=== PATIENT | female | born 1990 | race Caucasian/White ===

== ENCOUNTER 2020-06-28 09:28 | Emergency (ER) | payer OTHER, SELFPAY ==
[2020-06-28 09:35] VITALS: BP 113/70; PULSE 86; RESP 20; TEMP 36.8; O2SAT 98
--- NOTE | 2020-06-28 09:50 | ED.UPPEXIN ---
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 She denies trauma or injury. Related Data Allergies Allergy/AdvReac Type Severity Reaction Status Date / Time No Known Allergies Allergy Verified 06/08/19 10:24 Review of Systems Review of Systems: All systems reviewed & are unremarkable except as noted in HPI and below Constitutional: Constitutional: Reports as per HPI Eyes: Eyes: Reports no additional eye complaints ENT: Reports system reviewed and no additional complaints, except as documented Cardiovascular: Cardiovascular: Reports no additional cardiovascular complaints Respiratory: Respiratory: Reports no additional respiratory complaints Gastrointestinal: Gastrointestinal: Reports no additional gastrointestinal complaints Genitourinary: Genitourinary: Reports no additional female genitourinary complaints Musculoskeletal: Musculoskeletal: Reports as per HPI Integumentary/Breasts: Skin/Breast: Reports system reviewed and no additional complaints, except as docu Neurologic: Reports system reviewed and no additional complaints, except as documented Psychiatric: Psychiatric: Reports no additional psychiatric complaints Endocrine: Endocrine: Reports no additional endocrine complaints Hematologic/Lymphatic: Hematologic/Lymphatic: Reports no additional hematologic/lymphatic complaints Allergic/Immunologic: Allergic/Immunologic: Reports no additional allergic/immunologic complaints PMFSH Social History Social History Smoking status: Former smoker Exam Const: General: healthy appearing, no acute distress and alert Nutritional Appearance: well nourished Orientation/consciousness: patient oriented x3 Limitations: no limitations HENMT: Head: normal to inspection Eyes: Pupils: Equal, round and reactive pupils present Neck: Neck: normal visual inspection and no lymphadenopathy Chest: Chest palpation & inspection: normal inspection of the chest Resp: Effort & Inspection: normal respiratory effort Cardio: Rate: regular rate Rhythm: regular rhythm GI: Inspection: non-distended GI Palp: Yes Soft to palpation, No Tenderness to palpation present (GI), No Guarding due to palpation present (GI) and No Rigid due to palpation : General: Yes no CVA tenderness Skin: General skin exam: normal color Neuro: General: patient oriented x3, moves all extremities, no meningeal signs and no focal motor deficits Cranial nerves: Yes Nystagmus not present Speech: normal speech Extrem: Other: Left posterior TTP over thoracic paraspinal muscles, No thoracic spine TTP, No scapula tenderness. Patient has no pain on anterior aspect or lateral aspect of left shoulder Psych: Mental Status: mental status grossly normal Course Course Emergency Course: Home w/ PO Pain meds. MDM - Extremity Injury (Upper) MDM Narrative Medical decision making narrative: No H/O Trauma or injury w/ FROM. No x-rays indicated Critical Care Time Critical Care Time Critical Care Time: No Discharge Plan Discharge Clinical Impression: Sprain of left shoulder Qualifiers: Encounter type: initial encounter Shoulder sprain type: other part of shoulder region Qualified Code(s): S43.492A - Other sprain of left shoulder joint, initial encounter Patient Disposition: Home, Self-Care Condition: Stable Instructions: Antibiotic Form Prescriptions: New cyclobenzaprine 5 mg tablet 5 mg PO TID PRN (Reason: muscle spasm) Qty: 30 RF: 0 naproxen 500 mg tablet 500 mg PO BID PRN (Reason: pain) Qty: 20 RF: 0 Follow-up/Referrals: Shasta Uribe MD [Primary Care Provider] - Time of Disposition: 09:57
== END 2020-06-28 10:01 | disposition home or self-care (01) ==
PROVIDERS: Emergency Provider Family Medicine; PCP Internal Medicine
DX: S43.492A Other sprain of left shoulder joint, initial encounter (principal)
CPT/HCPCS: 99283

== ENCOUNTER 2020-08-23 10:59 | Outpatient (CLI) | payer OTHER, SELFPAY ==
--- NOTE | ~2020-08-23 | US_ITS ---
EXAMINATION: US thyroid EXAM DATE: 08/23/2020 11:54 INDICATION: Thyroiditis. TECHNIQUE: Multiple grayscale and Doppler images of the thyroid were obtained (by a technologist who performed the scan) and subsequently reviewed. Individual nodules and recommendations may be reporte d in accordance with TI-RADS system as designated by the 2017 ACR White Paper TI-RADS committee. The re is no prior study for comparison. FINDINGS: There is diffusely heterogeneous thyroid echogenicity without definite superimposed focal nodule iden tified. Right thyroid lobe measures 5.0 x 2.1 x 1.8 cm, the left measuring 4.1 x 1.9 x 1.6 cm. IMPRESSION: Enlarged heterogeneous thyroid parenchyma. Reviewed, dictated and finalized at location B. 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
== END 2020-08-23 11:00 | disposition home or self-care (01) ==
LOC: CHSIMG 11:00
PROVIDERS: PCP Internal Medicine; Visit Provider Internal Medicine
DX: E06.9 Thyroiditis, unspecified (principal)
CPT/HCPCS: 76536

== ENCOUNTER 2020-12-30 15:27 | Outpatient (CLI) | payer OTHER, SELFPAY ==
[2020-12-30 17:00] LABS: Free T3 2.36 pg/mL (2.18-3.98); Free T4 Free Thyroxine 0.88 ng/dL (0.76-1.46); Thyroid Stimulating Hormone 9.92 uIU/mL (0.36-3.74)
== END 2020-12-30 15:28 | disposition home or self-care (01) ==
LOC: CHSLAB 15:29
PROVIDERS: PCP Internal Medicine; Visit Provider Internal Medicine
DX: E03.4 Atrophy of thyroid (acquired) (principal)
CPT/HCPCS: 36415; 84439; 84443; 84481

== ENCOUNTER 2021-05-02 11:42 | Outpatient (CLI) | payer OTHER, SELFPAY ==
[2021-05-02 13:06] LABS: SARS-CoV-2 RNA PCR Positive (Negative)
== END 2021-05-02 11:43 | disposition home or self-care (01) ==
LOC: CHSLAB 11:43
PROVIDERS: PCP Internal Medicine; Visit Provider Internal Medicine
DX: U07.1 COVID-19 (principal)
CPT/HCPCS: C9803; U0003; U0005

== ENCOUNTER 2021-08-13 02:06 | Emergency (ER) | payer OTHER, SELFPAY ==
--- NOTE | ~2021-08-13 | XR_ITS ---
EXAMINATION: XR nasal bones min 3V DATE: 08/13/2021 05:21 INDICATION: Nose injury. TECHNIQUE: 3 views of the nasal bones were obtained. COMPARISON: Head CT 03/08/2012 FINDINGS: Bone alignment is normal. No definite fracture. There is soft tissue gas in the nose. IMPRESSION: 1. No fracture. Reviewed, dictated and finalized at location A. 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 No fracture.
[2021-08-13 02:25] VITALS: BP 105/43; PULSE 92; RESP 20; TEMP 36.6; O2SAT 97
[2021-08-13] MEDS: SODIUM CHLORIDE 0.9% IV 500 ML 999 ML IV CONT (02:52)
[2021-08-13 02:56] LABS: Basophils Absolute Auto 0.03 K/mm3 (0.00-0.10); Basophils Percent Auto 0.2 % (0.0-1.0); Eosinophils Absolute Auto 0.02 K/mm3 (0.02-0.50); Eosinophils Percent Auto 0.1 % (1.0-6.0); Hematocrit 43.4 % (35.0-49.0); Hemoglobin 14.6 g/dL (12.0-15.0); Immature Granulocyte Absolute 0.07 K/mm3 (0.00-0.00); Immature Granulocyte Percent A 0.4 % (0.0-0.0); Lymphocytes Absolute Auto 0.63 K/mm3 (1.10-4.50); Mean Corpuscular HGB Conc 33.6 g/dL (32.0-36.0); Mean Corpuscular Hemoglobin 32.6 pg (27.0-31.0); Mean Corpuscular Volume 96.9 fL (78.0-102.0); Mean Platelet Volume 10.8 fl (9.2-11.8); Monocytes Absolute Auto 0.84 K/mm3 (0.10-0.90); Monocytes Percent Auto 5.4 % (2.0-11.0); Neutrophils Absolute Auto 14.1 K/mm3 (1.7-7.2); Neutrophils Percent Auto 89.9 % (50.0-70.0); Platelet Count Result 230 K/mm3 (150-420); Red Blood Count 4.48 M/mm3 (4.20-5.40); White Blood Count 15.7 K/mm3 (4.8-10.8)
[2021-08-13 03:11] LABS: Alanine Aminotransferase 20 U/L (14-59); Albumin Level 3.8 g/dL (3.4-5.0); Alkaline Phosphatase 48 U/L (46-116); Anion Gap 12 mmol/L (8-16); Aspartate Amino Transferase 10 U/L (15-37); Bilirubin,Total 0.4 mg/dL (0.00-1.00); Blood Urea Nitrogen 18 mg/dL (7-18); Calcium 8.5 mg/dL (8.5-10.1); Carbon Dioxide 26 mmol/L (21-32); Chloride 104 mmol/L (98-108); Estimated CRCL calculation 82 ml/min; Estimated Glomerular Filt Rate > 60; Glucose 127 mg/dL (70-99); Osmolality Calculated 297 mOsm/kg (285-295); Potassium 4.8 mmol/L (3.5-5.1); Sodium 142 mmol/L (136-145); Total Protein 7.1 g/dL (6.4-8.2)
[2021-08-13 03:12] LABS: Magnesium 1.7 mg/dL (1.8-2.4)
[2021-08-13] MEDS: ACETAMINOPHEN 325 MG TABLET 650 MG PO (03:50)
--- NOTE | 2021-08-13 04:00 | PC.NURSE ---
Pt up to bathroom at this time. noted gait steady and accompanied by her boyfriend. 0 C/o dizziness or weakness.
[2021-08-13 04:12] LABS: Add Urine Microscopic? NO; Appearance Urine Clear (Clear); Bilirubin Urine Negative (Negative); Blood Urine Negative (Negative); Color Urine Yellow (Yellow); Glucose Urine UA Negative (Negative); Ketones Urine Negative (Negative); Leukocyte Esterase Ur Negative LEU/UL (Negative); Nitrate Urine Negative (Negative); Protein Urine Negative (Negative); Specific Grav Ur 1.025 (1.010-1.020); Urobilinogen Urine 0.2 mg/dL (0.2-1.0)
--- NOTE | 2021-08-13 04:51 | ED.SYNCOPE ---
HPI - Syncope General Chief Complaint: Syncope Stated Complaint: Syncope Episode Source: patient, family and RN notes reviewed Mode of arrival: ambulatory Limitations: no limitations History of Present Illness HPI narrative: Patient was bent over the toilet vomiting. She has been having gastroenteritis. After vomiting she passed out and hit the floor with her face. She was kneeling in front of the toilet. She sustained a laceration on her nose and pain to the bridge of her nose. complaint: collapsed Onset (ago): minute(s) (10) -: second(s) Prodromal symptoms: lightheaded and nausea/vomiting Witnessed: Yes - by Bystander Context: recent illness Injuries sustained associated with event: face Current symptoms: back to baseline Treatments prior to arrival: none Related Data Home Medications Medication Instructions Recorded Confirmed levothyroxine 75 mcg DAILY 08/13/21 08/13/21 Allergies Allergy/AdvReac Type Severity Reaction Status Date / Time No Known Allergies Allergy Verified 06/08/19 10:24 Review of Systems Review of Systems: All systems reviewed & are unremarkable except as noted in HPI and below Gastrointestinal: Gastrointestinal: Reports diarrhea, Reports nausea and Reports vomiting PMFSH Past Medical History Medical History (Updated 08/13/21 @ 05:26 by Hugo Jones MD) Obesity Ovarian cyst (11/02/17) Social History Social History Smoking status: Former smoker Exam Const: General: healthy appearing, no acute distress and alert Nutritional Appearance: well nourished Orientation/consciousness: patient oriented x3 HENMT: General nose exam: Abnormal external nose present nasal deviation to the right, nasal tenderness and nasal swelling Eyes: Conjunctivae: conjunctivae normal Pupils: Equal, round and reactive pupils present Resp: Effort & Inspection: normal respiratory effort Auscultation: clear to auscultation bilaterally Cardio: Rate: regular rate Rhythm: regular rhythm GI: Auscultation: normal bowel sounds Back/Spine/Pelvis: Cervical Spine: cervical ROM normal Thoracic/Lumbar Spine: thoraco-lumbar ROM normal Skin: General skin exam: normal color Rashes: no rashes Wounds: wounds noted laceration anterior nose Neuro: General: patient oriented x3, moves all extremities, no meningeal signs, no focal motor deficits and CN's II-XI intact bilaterally Speech: normal speech Gait exam (Neuro): Normal gait present Extrem: General: normal to inspection and no clubbing, cyanosis or edema Psych: Appearance: grossly normal and well kempt Mental Status: mental status grossly normal Affect: normal affect and Anxious affect present Attitude: cooperative Thought content: Yes Normal thought content present Course Vital Signs Vital signs: Vital Signs Temperature 36.6 C 08/13/21 02:25 Pulse Rate 92 08/13/21 02:25 Respiratory Rate 20 08/13/21 02:25 Blood Pressure 105/43 L 08/13/21 02:25 Pulse Oximetry 97 08/13/21 02:25 Temperature 36.6 C 08/13/21 02:25 Pulse Rate 92 08/13/21 02:25 Respiratory Rate 20 08/13/21 02:25 Blood Pressure 105/43 L 08/13/21 02:25 Pulse Oximetry 97 08/13/21 02:25 Procedures Laceration Laceration 1: Date: 08/13/21 Site: face (bridge of nose) Size (cm): 1 Description: stellate Depth: simple, single layer Pre-repair: wound explored (cleansed with wound cleanse) ====== Skin Level ====== Skin layer closed with: dermabond ====== Subcutaneous Layer ====== ====== Muscle Layer ====== ====== Tendon Layer ====== MDM - Syncope Lab Data Attestation: I reviewed the patient's lab results. Result diagrams: 08/13/21 02:53 08/13/21 02:53 Labs: Lab Results 08/13/21 08/13/21 08/13/21 Range/Units 02:53 02:53 02:53 WBC 15.7 H (4.8-10.8) K/mm3 RBC 4.48 (4.20-5.40)
--- NOTE | 2021-08-13 05:17 | PC.NURSE ---
Pt returned from X-Ray at this time, via stretcher.
[2021-08-13] MEDS: ONDANSETRON HCL ODT 4 MG TABLET PO (05:31)
[2021-08-13 05:42] VITALS: BP 107/62; PULSE 78; RESP 16; TEMP 36.6; O2SAT 96
== END 2021-08-13 05:44 | disposition home or self-care (01) ==
PROVIDERS: Emergency Provider Emergency Medicine; PCP Internal Medicine
DX: R55 Syncope and collapse (principal); S01.21XA Laceration without foreign body of nose, initial encounter; K52.9 Noninfective gastroenteritis and colitis, unspecified; S02.2XXA Fracture of nasal bones, initial encounter for closed fracture; W22.8XXA Striking against or struck by other objects, initial encounter
CPT/HCPCS: 12002; 12011; 36415; 70160; 80053; 81003; 83735; 85025; 96360; 99283; A9270; J7040

== ENCOUNTER 2021-10-15 11:50 | Outpatient (CLI) | payer OTHER, SELFPAY ==
[2021-10-15 13:03] LABS: Thyroid Stimulating Hormone 3.78 uIU/mL (0.36-3.74)
== END 2021-10-15 11:51 | disposition home or self-care (01) ==
LOC: CHSLAB 11:51
PROVIDERS: PCP Nurse Practitioner Family; Visit Provider Nurse Practitioner Family
DX: E03.9 Hypothyroidism, unspecified (principal)
CPT/HCPCS: 36415; 84443

== ENCOUNTER 2021-12-31 10:24 | Outpatient (CLI) | payer OTHER, SELFPAY ==
[2021-12-31 11:32] LABS: Influenza A QL RT-PCR Negative (Negative); Influenza B QL RT-PCR Negative (Negative); SARS-CoV-2 RNA PCR Negative (Negative)
== END 2021-12-31 10:25 | disposition home or self-care (01) ==
PROVIDERS: PCP Nurse Practitioner Family; Visit Provider Nurse Practitioner Family
DX: R50.9 Fever, unspecified (principal); Z20.822 Contact with and (suspected) exposure to COVID-19; J06.9 Acute upper respiratory infection, unspecified
CPT/HCPCS: 87502; C9803; U0003; U0005

== ENCOUNTER 2022-02-03 08:32 | Outpatient (CLI) | payer OTHER, SELFPAY ==
[2022-02-03 08:47] LABS: Basophils Absolute Auto 0.06 K/mm3 (0.00-0.10); Eosinophils Absolute Auto 0.09 K/mm3 (0.02-0.50); Eosinophils Percent Auto 1.5 % (1.0-6.0); Hemoglobin 14.1 g/dL (12.0-15.0); Immature Granulocyte Absolute 0.02 K/mm3 (0.00-0.00); Immature Granulocyte Percent A 0.3 % (0.0-0.0); Lymphocytes Absolute Auto 1.81 K/mm3 (1.10-4.50); Mean Corpuscular HGB Conc 34.4 g/dL (32.0-36.0); Mean Corpuscular Hemoglobin 32.9 pg (27.0-31.0); Mean Corpuscular Volume 95.6 fL (78.0-102.0); Monocytes Percent Auto 8.3 % (2.0-11.0); Neutrophils Absolute Auto 3.6 K/mm3 (1.7-7.2); Neutrophils Percent Auto 58.9 % (50.0-70.0); Platelet Count Result 222 K/mm3 (150-420); Red Blood Count 4.29 M/mm3 (4.20-5.40); Red Cell Distribution Width 12.1 % (11.6-14.4)
[2022-02-03 09:30] LABS: Alanine Aminotransferase 8 U/L (14-59); Albumin Level 3.7 g/dL (3.4-5.0); Alkaline Phosphatase 40 U/L (46-116); Anion Gap 6 mmol/L (8-16); Aspartate Amino Transferase 10 U/L (15-37); Bilirubin,Total 0.4 mg/dL (0.00-1.00); Blood Urea Nitrogen 10 mg/dL (7-18); Carbon Dioxide 26 mmol/L (21-32); Chloride 108 mmol/L (98-108); Estimated Glomerular Filt Rate > 60; Glucose 98 mg/dL (70-99); Osmolality Calculated 289 mOsm/kg (285-295); Potassium 4.3 mmol/L (3.5-5.1); Sodium 140 mmol/L (136-145); Thyroid Stimulating Hormone 2.28 uIU/mL (0.36-3.74); Total Protein 6.8 g/dL (6.4-8.2); Vitamin B12 397 pg/mL (193-986)
[2022-02-03 09:42] LABS: Free T4 Free Thyroxine 1.25 ng/dL (0.76-1.46)
[2022-02-05 21:07] LABS: FSH 6.4 mIU/mL (***); LH 4.9 mIU/mL (***)
[2022-02-08 14:16] LABS: Testosterone Total 19 ng/dL (2-45); Vitamin D 25 Hydroxy 35 ng/mL (30-100)
[2022-02-08 16:56] LABS: Estrogen 185.5 pg/mL
== END 2022-02-03 08:33 | disposition home or self-care (01) ==
LOC: CHSLAB 08:34
PROVIDERS: Nurse Practitioner Family; PCP Nurse Practitioner Family; Visit Provider Nurse Practitioner Family
DX: R53.83 Other fatigue (principal)
CPT/HCPCS: 36415; 80053; 82306; 82607; 82672; 82746; 83001; 83002; 84403; 84439; 84443; 85025

== ENCOUNTER 2022-02-17 15:18 | Outpatient (CLI) | payer OTHER, SELFPAY ==
[2022-02-17 16:31] LABS: Erythrocyte Sedimentation Rate 7 mm/hr (0-15)
[2022-02-20 11:37] LABS: CRP, High Sensitivity 0.5 mg/L (***)
[2022-02-22 09:48] LABS: ANA Cascade Screen Negative (Negative)
== END 2022-02-17 15:19 | disposition home or self-care (01) ==
LOC: CHSLAB 15:20
PROVIDERS: PCP Nurse Practitioner Family; Visit Provider Nurse Practitioner Family
DX: M25.50 Pain in unspecified joint (principal); R53.83 Other fatigue; E03.9 Hypothyroidism, unspecified
CPT/HCPCS: 36415; 85652; 86038; 86141; 86430

== ENCOUNTER 2022-02-24 08:34 | Outpatient (CLI) | payer OTHER, SELFPAY ==
--- NOTE | 2022-02-27 16:36 | WPDHOLTEREM ---
Holter/Event Monitor Holter/Event Monitor Date of procedure: 02/25/22 Holter/Event Procedure: 24 Hr Holter Monitor Indications: Chest pain Conclusion: 1. 24 hour holter monitor on 02/25/22. 2. Underlying rhythm is sinus rhythm. HR range 40-154 bpm; average HR 81 bpm. HR at 40 bpm was at 04:14 and HR at 154 bpm was at 12:15. 3. There are 1,408 premature supraventricular complexes, 514 supraventricular couplets, 3 supraventricular bigeminy and 68 supraventricular trigeminy. No supraventricular tachycardia. 4. There are 3 premature ventricular complexes and 2 ventricular couplets. No ventricular tachycardia. 5. No sinoatrial or atrioventricular blocks. No significant pauses greater than 2 seconds. 6. No symptoms available for correlation.
== END 2022-02-24 08:35 | disposition home or self-care (01) ==
LOC: CHSCARD 08:36
PROVIDERS: PCP Nurse Practitioner Family; Visit Provider Nurse Practitioner Family
DX: R07.9 Chest pain, unspecified (principal)
CPT/HCPCS: 93225; 93226

== ENCOUNTER 2022-05-07 15:48 | Emergency (ER) | payer OTHER, SELFPAY ==
--- NOTE | ~2022-05-07 | XR_ITS ---
XR knee RT min 4V 05/07/2022 16:36 INDICATION: Right knee pain and swelling PROCEDURE: 4 views right knee COMPARISON: 05/07/2009 FINDINGS: Fracture, dislocation or subluxation is not identified. No significant joint effusion. The soft tissues appear within normal limits. No foreign bodies are identified. IMPRESSION: 1: NO ACUTE BONE OR JOINT ABNORMALITY IDENTIFIED. Reviewed, dictated and finalized at location B.
[2022-05-07 15:54] VITALS: BP 114/85; PULSE 82; RESP 20; TEMP 36.4; O2SAT 100
--- NOTE | 2022-05-07 17:05 | ED.LOWEXIN ---
HPI - Extremity Injury (Lower) General Chief Complaint: Extremity Injury, Lower Stated Complaint: R KNEE PAIN Time Seen by Provider: 05/07/22 16:19 Source: patient Mode of arrival: ambulatory Limitations: no limitations History of Present Illness HPI Narrative: This is a 31-year-old female that presents emergency department for right knee pain ongoing over the last couple of weeks. Reports over the last couple of days the knee has started to become more painful and swollen. No recent injuries or trauma. Denies fever, erythema, or warmth. Related Data Allergies Allergy/AdvReac Type Severity Reaction Status Date / Time No Known Allergies Allergy Verified 05/07/22 16:17 Review of Systems Review of Systems: CONSTITUTIONAL: Denies fever SKIN: Denies rash MUSCULOSKELETAL: Reports joint pain, and myalgia. 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 HEAD: Normocephalic, atraumatic. EYES: EOMI. EXTREMITIES: Normal range of motion. No edema, erythema or warmth. Normal DP pulse. Normal sensation SKIN: Warm, dry, no rash. NEURO: No focal deficits. Alert and oriented x3. PSYCH: Normal mood and affect Course Vital Signs Vital signs: Vital Signs Temperature 97.6 F 05/07/22 15:54 Pulse Rate 82 05/07/22 15:54 Respiratory Rate 20 05/07/22 15:54 Blood Pressure 114/85 05/07/22 15:54 Pulse Oximetry 100 05/07/22 15:54 Oxygen Delivery Room Air 05/07/22 15:54 Temperature 97.6 F 05/07/22 15:54 Pulse Rate 82 05/07/22 15:54 Respiratory Rate 20 05/07/22 15:54 Blood Pressure 114/85 05/07/22 15:54 Pulse Oximetry 100 05/07/22 15:54 Oxygen Delivery Room Air 05/07/22 15:54 MDM - Extremity Injury (Lower) MDM Narrative Medical decision making narrative: Patient presents to the ER for right knee pain after ongoing over the last couple of weeks. No recent injury or trauma. She is neurovascularly intact. No erythema or warmth of the knee. Right knee x-ray without acute osseous abnormalities. Patient placed in He wrap and instructed to use crutches for comfort. She will be given follow-up with orthopedics. She was given warnings to return to the ER Imaging Data Radiologist's impression: ITS Impressions Knee X-Ray 05/07/22 16:38 IMPRESSION: 1: NO ACUTE BONE OR JOINT ABNORMALITY IDENTIFIED. Critical Care Time Critical Care Time Critical Care Time: No Discharge Plan Discharge Clinical Impression: Acute pain of right knee Patient Disposition: Home, Self-Care Condition: Stable Instructions: Knee Pain (ED) Additional Instructions: Return to the emergency department if you experience fever, redness and swelling of the leg, numbness, or any other symptoms that are concerning to you Wear HE wrap and use crutches. No weight on the affected leg until able to bear weight without pain. Ice and elevate extremity. Pain medication as needed and directed. Follow up orthopedics for furt
[2022-05-07 18:01] VITALS: BP 120/74; PULSE 74; RESP 16; O2SAT 100
== END 2022-05-07 18:02 | disposition home or self-care (01) ==
PROVIDERS: Emergency Provider Emergency Medicine
DX: M25.561 Pain in right knee (principal); E66.9 Obesity, unspecified; Z87.891 Personal history of nicotine dependence
CPT/HCPCS: 73564; 99283

== ENCOUNTER 2022-05-30 09:46 | Outpatient (CLI) | payer OTHER, SELFPAY ==
--- NOTE | ~2022-05-30 | MR_ITS ---
EXAMINATION: MR knee RT wo con DATE: 05/30/2022 11:43 INDICATION: Mass at the lateral right knee TECHNIQUE: Magnetic resonance imaging (MRI) of the right knee was performed without intravenous contr ast. Sequences included coronal PD-weighted FSE, coronal PD-weighted FS FSE, sagittal T2-weighted FS E, sagittal PD-weighted FS FSE and axial PD weighted fat saturated FSE. COMPARISON: None. FINDINGS: Medial compartment: Medial meniscus is normal. Articular cartilage is normal. Lateral compartment: Lateral meniscus is normal. Articular cartilage is normal. Patellofemoral compartment: Mild partial-thickness chondral fissuring along the caudal margin of the lateral patellar facet. [place] llofemoral cartilage is otherwise normal. Ligaments and tendons: Anterior and posterior cruciate ligaments are normal. The medial collateral ligament and fibular ana ateral ligament complex are normal. The extensor mechanism is normal. The visualized medial and later al hamstring tendons as well as the iliotibial band are normal. Fluid: Physiologic amount of fluid in the joint space. No loose osteochondral bodies identified. There is a multilobulated ganglion cyst extending laterally from the anterior aspect of the intercondylar notch along the periphery of the anterior horn of the lateral meniscus to the deep anterior margin of the i liotibial band. The cyst measures 3.1 cm in maximal medial to lateral length and 9 x 8 mm in maximal orthogonal dimensions. There is focal mild edema/nonloculated fluid in the subcutaneous fat overlying the immediately more superficial iliotibial band which may be related to extravasation from the gang lion cyst Osseous/other: Normal marrow signal. No fracture or pathologic marrow replacing process. No abnormal soft tissue mas ses identified. IMPRESSION: 1. 3.1 x 0.9 x 0.8 cm ganglion cyst extending along the anterior horn of the lateral meniscus to the deep margin of the iliotibial band with focal region of overlying subcutaneous edema which could rela te to cyst rupture and extravasation. No abnormal masses. 2. Small region of moderate grade chondromalacia along the inferior aspect of the lateral patellar fa cet. Otherwise unremarkable right knee MRI. Reviewed, dictated and finalized at location A. IMPRESSION: 1. 3.1 x 0.9 x 0.8 cm ganglion cyst extending along the anterior horn of the la teral meniscus to the deep margin of the iliotibial band with focal region of o verlying subcutaneous edema which could relate to cyst rupture and extravasatio n. No abnormal masses. 2. Small region of moderate grade chondromalacia along the inferior aspect of t he lateral patellar facet. Otherwise unremarkable right knee MRI.
== END 2022-05-30 09:47 | disposition home or self-care (01) ==
PROVIDERS: PCP Physician Assistant; Visit Provider Physician Assistant
DX: R22.41 Localized swelling, mass and lump, right lower limb (principal)
CPT/HCPCS: 73721

== ENCOUNTER 2022-10-08 10:43 | Outpatient (CLI) | payer OTHER, SELFPAY ==
[2022-10-08 11:36] LABS: Strep Group A RT-PCR NOT DETECTED (Negative)
== END 2022-10-08 10:44 | disposition home or self-care (01) ==
LOC: CHSLAB 10:44
PROVIDERS: PCP Nurse Practitioner Family; Visit Provider Nurse Practitioner Family
DX: J02.8 Acute pharyngitis due to other specified organisms (principal); B97.89 Other viral agents as the cause of diseases classified elsewhere
CPT/HCPCS: 87651